=== PATIENT | male | born 1955 | race Caucasian/White ===

== ENCOUNTER → 2018-02-05 | Outpatient (CLI) | payer MEDICARE ==
[~2018-02-05] MED LIST: IOPAMIDOL 370 MG/ML 200 ML INFUS..BTL INJ ONE; SODIUM CHLORIDE 0.9% 50ML 50 ML ONE
[2018-02-05 08:22] LABS: BLOOD UREA NITROGEN 18 mg/dL (7-26); BUN/CREATININE RATIO 23 (6-25); CREATININE, SERUM 0.79 mg/dL (0.72-1.25); EST GLOMERULAR FILTRATION RATE > 60 ML/MIN (60-)
--- NOTE | 2018-02-05 09:05 | Diagnostic Imaging Report ---
PROCEDURE: CT scan of the chest WITH intravenous contrast, using standard protocol. TECHNIQUE: The chest was scanned utilizing a multidetector helical scanner from the lung apex through the level of the adrenal glands after the IV administration of 100 cc of Isovue 370. Coronal and sagittal multiplanar reformations were obtained. COMPARISON: None. Report from a chest radiograph at an outside facility describes a right hilar lesion, approximately 7 x 7 mm. INDICATIONS: ABNORMAL CHEST X-RAY FINDINGS: Lines/tubes: None. Lungs and Airways: Focal bronchiectasis and small pneumatoceles in the superior and medial basal segments of the left lower lobe. The lungs are otherwise well inflated and clear with the exception of minimal nonspecific groundglass opacity in the right upper lobe and linear opacities in the lung bases, right greater than left.. 3 mm groundglass nodule in the left lung apex seen on series 3 image 26. No consolidation or gross mass lesion. Trachea, mainstem bronchi, and central lobar and segmental bronchi are patent. Pleura: No pleural effusion or pneumothorax. Heart and mediastinum: Visualized portions of the thyroid gland appear normal. There is no ectasia or aneurysmal dilatation of the thoracic aorta. Great vessel origins are normal in caliber and configuration. The pulmonary outflow tract is of normal caliber. There is no pericardial effusion. Central pulmonary arteries are patent. No axillary, hilar, or mediastinal lymphadenopathy. Soft tissues: No focal soft tissue abnormalities. Abdomen: The visualized portions of the liver, spleen, pancreas, and adrenals are unremarkable. Exophytic left upper pole renal cyst is partially visualized. Bones: No osseous destructive lesions. Multilevel degenerative disc changes of the lower cervical and thoracic spine. Bilateral glenohumeral degenerative joint disease left worse than right. IMPRESSION: No acute intrathoracic CT abnormality. Specifically, no right hilar mass corresponding to the reported radiographic abnormality. Upper lobe groundglass opacities and left apical groundglass nodule likely reflects sequela of infectious or inflammatory process. A followup CT scan of the chest without contrast in one year may be obtained if the patient has a history of tobacco use or is otherwise increased risk of malignancy. Left lower lobe bronchiectasis and small pneumatoceles, likely sequela of prior infectious process. Dictated by: Luan Johnson M.D. on 02/05/2018 at 9:07 Electronically approved by: Luan Johnson M.D. on 02/05/2018 at 9:07
== END ==
LOC: CT 07:39
PROVIDERS: ATTEND Family Medicine
DX: R05 Cough (principal); J20.9 Acute bronchitis, unspecified; R93.8 Abnormal findings on diagnostic imaging of other specified body structures; F17.210 Nicotine dependence, cigarettes, uncomplicated
CPT/HCPCS: 36415; 71260; 82565; 84520; Q9967

== ENCOUNTER → 2020-10-09 | Outpatient (CLI) | payer MEDICARE | LOC: RAD 11:01 | PROVIDERS: ATTEND Family Medicine | DX: R05 Cough (principal); R09.89 Other specified symptoms and signs involving the circulatory and respiratory systems | CPT/HCPCS: 71046 ==

== ENCOUNTER → 2022-10-07 | Outpatient (CLI) | payer MEDICARE | LOC: RAD 11:52 | PROVIDERS: ATTEND Family Medicine | DX: J40 Bronchitis, not specified as acute or chronic (principal) | CPT/HCPCS: 71046 ==